=== PATIENT | male | born 1980 | race Caucasian/White ===

== ENCOUNTER 2020-10-09 14:39 | Emergency (ER) | payer OTHER ==
[2020-10-09 15:29] LABS: Absolute Neutrophil Ct (ANC) 3.52 (1.4-6.9); BASOPHIL % 0.9 % (0.0-0.4); Basophil (Absolute #) 0.07 (0-0.4); Eosinophil % 3.9 % (0.00-5.0); Hematocrit 50.2 % (42-50); Hemoglobin 16.9 gm/dl (12.5-18.0); Lymphocyte (Absolute #) 3.16 (1.0-4.6); Lymphocytes % 40.9 % (24.0-44.0); Mean Cell Volume 90.1 fl (78-100); Mean Corpuscular Hemoglobin 30.3 pg (26-32); Mean Corpuscular Hgb Concent. 33.7 g/dl (32-36); Mean Platelet Volume 10.6 fl (7.5-11.0); Monocyte (Absolute #) 0.68 (0.0-1.3); Monocytes % 8.8 % (0.0-12.0); Neutrophil % 45.5 % (36.0-66.0); Platelet Count 348 K/mm3 (150-450); Red Blood Count 5.57 M/mm3 (4.1-5.6); Red Cell Distribution Width 13.3 % (11.5-14.0); White Blood Count 7.7 K/mm3 (4.0-10.5)
[2020-10-09 15:30] LABS: ALBUMIN 4.8 g/dL (3.5-5.0); ALKALINE PHOSPHATASE 56 U/L (38-126); ANION GAP 13.4 MEQ/L (5-15); BLOOD UREA NITROGEN 14 mg/dL (9-20); CHLORIDE 99 mmol/L (98-107); Calcium 9.7 mg/dL (8.4-10.2); Carbon Dioxide 28 mmol/L (22-30); Creatinine 1 0.94 mg/dL (0.66-1.25); EST GLOMERULAR FILTRATION RATE > 60.0 ML/MIN; Glucose 115 mg/dL (74-106); Potassium 3.6 mmol/L (3.5-5.1); SGOT/AST 32 U/L (17-59); SGPT/ALT 36 U/L (0-50); SODIUM 137 mmol/L (137-145); Total Protein 8.2 g/dL (6.3-8.2)
[2020-10-09] MEDS ORDERED: MORPHINE SULFATE 4 MG INJ IV ONE (15:33)
[2020-10-09] MEDS ORDERED: Zofran 4 MG/2 ML VIAL IV ONE (15:33)
[2020-10-09] MEDS ORDERED: Pepcid 20 MG VIAL IV ONE ×2 (15:33→15:46)
[2020-10-09] MEDS ORDERED: GI COCKTAIL 45 ML (Maalox/Lidocaine) PO ONE (15:33)
[2020-10-09] MEDS ORDERED: Zofran 4 MG/2 ML VIAL ONE (15:45)
[2020-10-09] MEDS ORDERED: MORPHINE SULFATE 4 MG INJ ONE (15:46)
[2020-10-09] MEDS ORDERED: MAALOX ES 30 ML UNIT DOSE ONE (15:47)
[2020-10-09] MEDS ORDERED: XYLOCAINE HCl Viscous ONE (15:47)
--- NOTE | 2020-10-09 15:59 | ERPHSYRPT ---
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 pt took 325 asa before coming to ED. reports pmhx HTN only. describes sharp pain in L upper chest that radiates down L arm and is 8/10. pain began at rest and was alleviated upon arriving to ED. during assesment pt states pain is beginning to return. skin PWD. denies NV and not diaphoretic Physician History: 40 years old male with history of hypertension, GERD presented in the ER with i ntermittent chest pain for almost 1 week patient described as a dull aching sharp pain in the left chest with radiation to the left arm, last for few minutes to half an hour and improves on its own. Earlier pain started almost half an hour ago and improved on presentation in the ER and now seems like it is coming back again. Denies any palpitations or shortness of breath associated with it. Unable to relate any significant aggravating or relieving factors. Denies any recent fever chills or cough. Notes having similar chest pain almost a year ago and had a stress test done at [facility] which was negative Timing/Duration: week(s), intermittent, worse Activities at Onset: rest Quality: burning, sharpness Location: substernal, shoulder Chest Pain Radiation: arm, back Severity of Pain-Max: moderate Severity of Pain-Current: moderate Modifying Factors: Improves With: nothing Associated Symptoms: heartburn, No palpitations Prior Chest Pain/Cardiac Workup: no prior cardiac workup Nitro Today/Relief: no nitro taken today Aspirin Treatment Today: provided at home Allergies/Adverse Reactions: No Known Drug Allergies Allergy (Unverified 10/09/20 14:51) Home Medications: Lisinopril/Hydrochlorothiazide [Lisinopril-Hctz 10-12.5 mg Tab] 1 tab PO DAILY 10/09/20 [History] Hx Tetanus, Diphtheria Vaccination/Date Given: Yes Hx Influenza Vaccination/Date Given: No Hx Pneumococcal Vaccination/Date Given: No Travel Risk - International Travel Have you traveled outside of the country in past 3 weeks: No - Coronavirus Screening Are you exhibiting any of the following symptoms?: No Close contact with a COVID-19 positive Pt in past 14-21 Days: No - Review of Systems Constitutional: No Symptoms Eyes: No Symptoms Ears, Nose, & Throat: No Symptoms Respiratory: No Symptoms Cardiac: Chest Pain Abdominal/Gastrointestinal: No Symptoms Genitourinary Symptoms: No Symptoms Musculoskeletal: No Symptoms Skin: No Symptoms Neurological: No Symptoms Psychological: No Symptoms Endocrine: No Symptoms Hematologic/Lymphatic: No Symptoms Immunological/Allergic: No Symptoms - Past Medical History Pertinent Past Medical History: Yes Cardiac History: Hypertension - Past Surgical History Past Surgical History: Yes Musculoskeletal: Orthopedic Surgery Other Surgical History: R femur - metal in place - Social History Smoking Status: Current every day smoker How long have you smoked: years Exposure to second hand smoke: No Drug Use: none Patient Lives Alone: No - Nursing Vital Signs Nursing Vital Signs: Initial Vital Signs Temperature 97.9 F 10/09/20 14:52 Pulse Rate 75 10/09/20 14:52 Respiratory Rate 24 10/09/20 14:52 Blood Pressure 183/107 10/09/20 14:52 O2 Sat by Pulse Oximetry 100 10/09/20 14:52 Pain Scale Pain Intensity 3 - Physical Exam General Appearance: no apparent distress, alert Eye Exam: PERRL/EOMI, eyes nml inspection Ears, Nose, Throat Exam: normal ENT inspection, pharynx normal Neck Exam: normal inspection, non-tender, supple, full range of motion Respiratory Exam: normal breath sounds, lungs clear, No chest tenderness Cardiovascular Exam: regular rate/rhythm, normal heart sounds Gastrointestinal/Abdomen Exam: soft, normal bowel sounds, No tenderness Back Exam: normal inspection, normal range of motion Extremity Exam: normal inspection, normal range of motion Skin Exam: normal color, warm SpO2 Interpretation: normal SpO2: 100 O2 Delivery: Room Air - Course EKG Interpreted by Me: RATE, NORMAL AXIS, NORMAL INTERVALS, NORMAL QRS (T wave inversion in lead II/III/aVF), Other (Second EKG. Time. 1915 Rate80. [place] normal. Normal intervals. ST elevation in inferior leads.) Ordered Tests: Active Orders 24 hr Category Date Time Status CHEST 1 VIEW (PORTABLE) Stat Exams 10/09/20 15:03 Completed CBC W DIFF Stat Lab 10/09/20 15:02 Completed CMP Stat Lab 10/09/20 15:02 Completed D-DIMER QUANTITATIVE Stat Lab 10/09/20 15:02 Completed TROPONIN Q3H Lab 10/09/20 15:02 Completed TROPONIN Q3H Lab 10/09/20 18:15 Completed TROPONIN Q3H Lab 10/09/20 21:15 Ordered EKG STAT RT 10/09/20 15:02 Active Medication Summary Generic Name Dose Route Start Last Admin Trade Name Bess PRN Reason Stop Dose Admin Aspirin 324 mg 10/10/20 10:00 10/09/20 16:06 Ecotrin 81 Mg PO 11/09/20 09:59 Not Given DAILY HARLEEN Discontinued Medications Generic Name Dose Route Start Last Admin Trade Name Bess PRN Reason Stop Dose Admin Al Hydrox/Mg Hydrox/Simethicone Confirm 10/09/20 15:47 Maalox Es 30 Ml Unit Dose Administered 10/09/20 15:48 Dose 30 ml .ROUTE .STK-MED ONE Famotidine 20 mg 10/09/20 15:33 10/09/20 15:53 Pepcid 20 Mg Vial IV 10/09/20 15:34 20 mg STAT ONE Administration Famotidine Confirm 10/09/20 15:46 Pepcid 20 Mg Vial Administered 10/09/20 15:47 Dose 20 mg IV .STK-MED ONE Heparin Sodium (Beef Lung) Confirm 10/09/20 19:26 Heparin 5000 Units/0.5 Ml (High Risk Med) Administered 10/09/20 19:27 Dose 5,000 unit .ROUTE .STK-MED ONE Sodium Chloride Confirm 10/09/20 19:22 Sodium Chloride 0.9% 1000 Ml Administered 10/09/20 19:23 Dose 1,000 mls @ ud .ROUTE .STK-MED ONE Lidocaine HCl Confirm 10/09/20 15:47 Xylocaine Hcl Viscous * Administered 10/09/20 15:48 Dose 15 ml .ROUTE .STK-MED ONE Magnesium Hydroxide 45 ml 10/09/20 15:33 10/09/20 15:56 Gi Cocktail 45 Ml (Maalox/Lidocaine) PO 10/09/20 15:34 45 ml STAT ONE Administration Morphine Sulfate 4 mg 10/09/20 15:33 10/09/20 15:52 Morphine Sulfate 4 Mg Inj IV 10/09/20 15:34 4 mg STAT ONE Administration Morphine Sulfate Confirm 10/09/20 15:46 Morphine Sulfate 4 Mg Inj Administered 10/09/20 15:47 Dose 4 mg .ROUTE .STK-MED ONE Nitroglycerin Confirm 10/09/20 19:14 Nitro-Bid 2% Ud Packets Administered 10/09/20 19:15 Dose 1 gm .ROUTE .STK-MED ONE Nitroglycerin 1 gm 10/09/20 19:33 10/09/20 19:37 Nitro-Bid 2% Ud Packets TOP 10/09/20 19:34 1 gm STAT ONE Administration Ondansetron HCl 4 mg 10/09/20 15:33 10/09/20 15:49 Zofran 4 Mg/2 Ml Vial IV 10/09/20 15:34 4 mg STAT ONE Administration Ondansetron HCl Confirm 10/09/20 15:45 Zofran 4 Mg/2 Ml Vial Administered 10/09/20 15:46 Dose 4 mg .ROUTE .STK-MED ONE Lab/Rad Data: Laboratory Result Diagrams 10/09/20 15:02 10/09/20 15:02 Laboratory Results 10/09/20 10/09/20 10/09/20 Range/Units 18:15 15:02 15:02 WBC (4.0-10.5) K/mm3 RBC (4.1-5.6) M/mm3 Hgb (12.5-18.0) gm/dl Hct (42-50) % MCV (78-100) fl MCH (26-32) pg MCHC (32-36) g/dl RDW (11.5-14.0) % Plt Count (150-450) K/mm3 MPV (7.5-11.0) fl Gran % (36.0-66.0) % Eos # (Auto) (0-0.5) Absolute Lymphs (auto) (1.0-4.6) Absolute Monos (auto) (0.0-1.3) Lymphocytes % (24.0-44.0) % Monocytes % (0.0-12.0) % Eosinophils % (0.00-5.0) % Basophils % (0.0-0.4) % Absolute Granulocytes (1.4-6.9) Basophils # (0-0.4) D-Dimer < 215 L (215-500) ng/mL Sodium (137-145) mmol/L Potassium (3.5-5.1) mmol/L Chloride (98-107) mmol/L Carbon Dioxide (22-30) mmol/L Anion Gap (5-15) MEQ/L BUN (9-20) mg/dL Creatinine (0.66-1.25) mg/dL Estimated GFR ML/MIN Glucose (74-106) mg/dL Calcium (8.4-10.2) mg/dL Total Bilirubin (0.2-1.3) mg/dL AST (17-59) U/L ALT (0-50) U/L Alkaline Phosphatase (38-126) U/L Troponin I 0.432 H* < 0.012 (0.000-0.034) ng/mL Serum Total Protein (6.3-8.2) g/dL Albumin (3.5-5.0) g/dL 10/09/20 10/09/20 Range/Units 15:02 15:02 WBC 7.7 (4.0-10.5) K/mm3 RBC 5.57 (4.1-5.6) M/mm3 Hgb 16.9 (12.5-18.0) gm/dl Hct 50.2 H (42-50) % MCV 90.1 (78-100) fl MCH 30.3 (26-32) pg MCHC 33.7 (32-36) g/dl RDW 13.3 (11.5-14.0) % Plt Count 348 (150-450) K/mm3 MPV 10.6 (7.5-11.0) fl Gran % 45.5 (36.0-66.0) % Eos # (Auto) 0.30 (0-0.5) Absolute Lymphs (auto) 3.16 (1.0-4.6) Absolute Monos (auto) 0.68 (0.0-1.3) Lymphocytes % 40.9 (24.0-44.0) % Monocytes % 8.8 (0.0-12.0) % Eosinophils % 3.9 (0.00-5.0) % Basophils % 0.9 (0.0-0.4) % Absolute Granulocytes 3.52 (1.4-6.9) Basophils # 0.07 (0-0.4) D-Dimer (215-500) ng/mL Sodium 137 (137-145) mmol/L Potassium 3.6 (3.5-5.1) mmol/L Chloride 99 (98-107) mmol/L Carbon Dioxide 28 (22-30) mmol/L Anion Gap 13.4 (5-15) MEQ/L BUN 14 (9-20) mg/dL Creatinine 0.94 (0.66-1.25) mg/dL Estimated GFR > 60.0 ML/MIN Glucose 115 H (74-106) mg/dL Calcium 9.7 (8.4-10.2) mg/dL Total Bilirubin 0.50 (0.2-1.3) mg/dL AST 32 (17-59) U/L ALT 36 (0-50) U/L Alkaline Phosphatase 56 (38-126) U/L Troponin I (0.000-0.034) ng/mL Serum Total Protein 8.2 (6.3-8.2) g/dL Albumin 4.8 (3.5-5.0) g/dL - Progress Progress: re-examined Air Movement: good Progress Note: 10/09/20 19:34 Year years old is evaluated in the ER for intermittent chest pain for almost 1 week. Initial EKG showed sinus rhythm with T wave inversion in inferior leads but no ST elevations. He is given morphine and GI cocktail for symptomatic relief. Patient has full dose aspirin prior to arrival from home. On reevaluation his pain is better. Not in any distress. Initial troponins are negative. Negative D-dimers. Chest x-ray did not show any acute cardiopulmonary findings. Unremarkable work-up otherwise. Second EKG showed finding concerning for ST elevation inferior leads and has elevated troponin of 0.43. I believe patient is evolving ST elevation [place] although his pain is better. I have discussed with Dr. [facility] and patient is accepted for transfer. He is given heparin bolus here. Plan discussed with patient who understand and agrees with it. Blood Culture(s) Obtained: No Antibiotics given: No Discussed with : Other ([facility]) Will see patient in: ED Counseled pt/family regarding: lab results, diagnosis, rad results - Departure Departure Disposition: Transfer Clinical Impression: STEMI (ST elevation myocardial infarction) Qualifiers: Involved coronary artery: unspecified coronary artery Qualified Code(s): I21.3 - ST elevation (STEMI) myocardial infarction of unspecified site Condition: Stable Critical Care Time: Yes Critical Care Time(excluding separately billable procedures): Critical 30-74 mins Referrals: SOHAIL POOLE, NURSERY HELPER [ALLIED HEALTH PROFESSION STAFF] -
--- NOTE | 2020-10-09 16:06 | XRAY ---
Indication: Chest pain. Comparison: None Portable chest demonstrates normal heart, lungs, and bony thorax with incidental right perihilar calcified nodes.
[2020-10-09] MEDS ORDERED: NITRO-BID 2% UD PACKETS ONE (19:14)
[2020-10-09] MEDS ORDERED: Sodium Chloride 0.9% 1000 ML 1,000 ML ONE (19:22)
[2020-10-09] MEDS ORDERED: Heparin 5000 UNITS/0.5 ML (HIGH RISK MED) ONE (19:26)
[2020-10-09 19:29] VITALS: BP 157/99; PULSE 80; O2SAT 100
[2020-10-09] MEDS ORDERED: NITRO-BID 2% UD PACKETS TOP ONE (19:33)
[2020-10-10] MEDS ORDERED: ECOTRIN 81 MG PO SCH (10:00)
== END 2020-10-09 19:37 | disposition short-term general hospital (02) ==
LOC: ED 14:39
DX: I21.3 ST elevation (STEMI) myocardial infarction of unspecified site (principal)
CPT/HCPCS: 36415; 71045; 80053; 84484; 85025; 85379; 93005; 96374; 96375; 99285; 99291; J1644; J2270; J2405; A9270-GY

== ENCOUNTER 2022-02-28 23:21 | Emergency (ER) | payer OTHER ==
[2022-02-28 23:41] VITALS: O2SAT 96
[2022-02-28] MEDS ORDERED: KEFLEX 500 MG PO ONE (23:59)
[2022-03-01] MEDS ORDERED: KEFLEX 500 MG ONE (00:02)
--- NOTE | 2022-03-01 00:07 | ERPHSYRPT ---
- History of Present Illness Time Seen by Provider: 02/28/22 23:40 Source: patient Exam Limitations: no limitations Patient Subjective Stated Complaint: Pt states " I cut my finger on my copper tube winder hand." Triage Nursing Assessment: Pt alert and oriented x3, pt presents with laceration on tip of index finger on L hand d/t cutting it on a tube winder hand around 1500, bleeding is controlled at this time, pt had index finger bandaged up upon triage, pt placed bacitracin and peroxide on laceration prior to bandage. pt states "it is a little numb on the tip of my finger." Physician History: Patient is a 41-year-old male presents to our ED for evaluation of a laceration to the distal tip of his left ring finger. Patient states Cutting copper tubing when the cutter slipped and lacerated the tip of his finger. Injury occurred approximately 3 PM today, 9 hours prior to arrival. Patient treated the wound with bacitracin and peroxide. Patient states his made him come to the ER for evaluation. Patient declineda Finger x-ray. Patient states he is sure the injury just soft tissue. Tetanus up-to-date. Pain well controlled this time. Patient declined pain medication. Patient voices no other complaints or concerns at this time. Patient denies foreign body sensation Timing/Duration: today Severity: mild Modifying Factors: Improves With: nothing Associated Symptoms: denies symptoms Allergies/Adverse Reactions: No Known Drug Allergies Allergy (Verified 02/28/22 23:31) Home Medications: Lisinopril/Hydrochlorothiazide [Lisinopril-Hctz 10-12.5 mg Tab] 1 tab PO DAILY 10/09/20 [History] Aspirin [Adult Aspirin Regimen] 81 mg PO DAILY 02/28/22 [History] Atorvastatin Calcium 80 mg PO DAILY 02/28/22 [History] Metoprolol Tartrate 25 mg [Lopressor 25MG Tab] 25 mg PO DAILY 02/28/22 [History] Ticagrelor [Brilinta] 90 mg PO DAILY 02/28/22 [History] Hx Tetanus, Diphtheria Vaccination/Date Given: Yes Hx Influenza Vaccination/Date Given: No Hx Pneumococcal Vaccination/Date Given: No Immunizations Up to Date: Yes Travel Risk - International Travel Have you traveled outside of the country in past 3 weeks: No - Coronavirus Screening Are you exhibiting any of the following symptoms?: No Close contact with a COVID-19 positive Pt in past 14-21 Days: No - Vaccine Status Have you recieved a Covid-19 vaccination: Yes Parish Visitor: Unknown - Vaccination Dates Dates if Unknown: 2020 - Review of Systems Constitutional: No Symptoms, No Fever, No Chills Eyes: No Symptoms Ears, Nose, & Throat: No Symptoms Respiratory: No Symptoms, No Cough, No Dyspnea Cardiac: No Symptoms, No Chest Pain, No Edema, No Syncope Abdominal/Gastrointestinal: No Symptoms, No Abdominal Pain, No Nausea, No Vomiting, No Diarrhea Genitourinary Symptoms: No Symptoms, No Dysuria Musculoskeletal: No Symptoms, No Back Pain, No Neck Pain Skin: No Symptoms, No Rash Neurological: No Symptoms, No Dizziness, No Focal Weakness, No Sensory Changes Psychological: No Symptoms Endocrine: No Symptoms Hematologic/Lymphatic: No Symptoms Immunological/Allergic: No Symptoms All Other Systems: Reviewed and Negative - Past Medical History Pertinent Past Medical History: Yes Neurological History: No Pertinent History ENT History: No Pertinent History Cardiac History: Hypertension, Myocardial Infarction (MS) Respiratory History: No Pertinent History Endocrine Medical History: No Pertinent History Musculoskeletal History: No Pertinent History GI Medical History: Hernia History: No Pertinent History Psycho-Social History: No Pertinent History Male Reproductive Disorders: No Pertinent History - Past Surgical History Past Surgical History: Yes Cardiac: Cardiac Stent Musculoskeletal: Orthopedic Surgery Other Surgical History: R femur - metal in place - Social History Smoking Status: Current every day smoker How long have you smoked: years Exposure to second hand smoke: No Drug Use: none Patient Lives Alone: No - Nursing Vital Signs Nursing Vital Signs: Initial Vital Signs Temperature 98.5 F 02/28/22 23:32 Pulse Rate 111 H 02/28/22 23:32 Respiratory Rate 16 02/28/22 23:32 Blood Pressure 155/105 02/28/22 23:32 O2 Sat by Pulse Oximetry 96 02/28/22 23:32 Pain Scale Pain Intensity 1 - Physical Exam General Appearance: no apparent distress, alert Eye Exam: PERRL/EOMI, eyes nml inspection Ears, Nose, Throat Exam: normal ENT inspection, TMs normal, pharynx normal, moist mucous membranes Neck Exam: normal inspection, non-tender, supple, full range of motion Respiratory Exam: normal breath sounds, lungs clear, airway intact, No r espiratory distress Cardiovascular Exam: regular rate/rhythm, normal heart sounds, normal peripheral pulses Gastrointestinal/Abdomen Exam: soft, normal bowel sounds, No tenderness, No mass Back Exam: normal inspection, normal range of motion, No CVA tenderness, No vertebral tenderness Extremity Exam: normal inspection, normal range of motion, pelvis stable, other (Is about a half centimeter laceration to the distal tip of the left ring finger. No subungual hematoma. No open or draining lesions. Tendon function intact in both flexion and extension), No swelling (Minimal swelling. Radial pulse palpable.) Neurologic Exam: alert, oriented x 3, cooperative, normal mood/affect, nml cerebellar function, nml station & gait, sensation nml, No motor deficits Skin Exam: normal color, warm, dry, other (No foreign body observed at the injury site), No rash Lymphatic Exam: No adenopathy SpO2 Interpretation: normal SpO2: 96 O2 Delivery: Room Air Procedures - Laceration/Wound Repair Finger Time of Procedure: 00:11 Wound Location: Left (Distal tip left ring finger.) Wound Length (cm): 0.5 Wound's Depth, Shape: superficial Wound Explored: contaminated (Wound appears somewhat contaminated. Wound irrigated by nursing services.) Irrigated: Yes Hibiclens Prep: Yes Wound Debrided: No debridement indicated Wound Repaired With: Dermabond Sterile Dressing Applied?: Yes Sling Applied?: No - Course Nursing assessment & vital signs reviewed: Yes Ordered Tests: Medication Summary Discontinued Medications Generic Name Dose Route Start Last Admin Trade Name Freq PRN Reason Stop Dose Admin Cephalexin HCl 500 mg 02/28/22 23:59 03/01/22 00:05 Cephalexin Mh500 Mg Capsule PO 03/01/22 00:00 500 mg STAT ONE Administration Cephalexin HCl Confirm 03/01/22 00:02 Cephalexin Mh500 Mg Capsule Administered 03/01/22 00:03 Dose 500 mg .ROUTE .STK-MED ONE - Progress Progress: improved Progress Note: Patient reassessed. Patient declined pain medication. The wound site was slightly contaminated. Antibiotics administered. Patient denies foreign body sensation. No foreign bodies in the observed during exam. Extremity neurovascular intact distally. Tetanus up-to-date. Patient otherwise feels well. He voices no other complaints or concerns at this time. Will discharge home. Portions of this note were created with voice recognition technology. There may be grammatical, spelling, punctuation or sound alike errors 03/01/22 00:14 Counseled pt/family regarding: diagnosis, need for follow-up - Departure Departure Disposition: Home Clinical Impression: Finger laceration Condition: Stable Critical Care Time: No Referrals: ABEBE LEY MD [Primary Care Provider] - Follow up/PCP as directed Additional Instructions: Discharge/Care Plan EDINSON LEROY was seen on 03/01/22 in the Emergency Room. The patient was counseled regarding Diagnosis,Lab results, Imaging studies, need for follow up and when to return to the Emergency Room. Prescriptions given: Discharge Note I have spoken with the patient and/or caregivers. I have explained the patient's condition, diagnosis and treatment plan based on the information available to me at this time. I have answered the patient's and/or caregiver's questions and addressed any concerns. The patient and/or caregivers have as good understanding of the patient's diagnosis, condition and treatment plan as can be expected at this point. The vital signs have been stable. The patient's condition is stable and appropriate for discharge from the emergency department. The patient will pursue further outpatient evaluation with the primary care physician or other designated or consulting physician as outlined in the discharge instructions. The patient and/or caregivers are agreeable to this plan of care and follow-up instructions have been explained in detail. The patient and/or caregivers have received these instruction. The patient/and or caregivers are aware that any significant change in condition or worsening of symptoms should prompt an immediate return to this or the closest emergency department or call 911. Prescriptions: Cephalexin Mh 500 mg [Keflex 500 mg] 500 mg PO TID #21 cap
[2022-03-01 00:36] VITALS: BP 144/103; PULSE 99
== END 2022-03-01 00:36 | disposition home or self-care (01) ==
LOC: ED 23:21
DX: S61.215A Laceration without foreign body of left ring finger without damage to nail, initial encounter (principal); W45.8XXA Other foreign body or object entering through skin, initial encounter; W27.8XXA Contact with other nonpowered hand tool, initial encounter; I10 Essential (primary) hypertension; Z72.0 Tobacco use
CPT/HCPCS: 12001; 99283; A9270-GY

== ENCOUNTER 2023-07-28 17:59 | Emergency (ER) | payer OTHER ==
[2023-07-28 18:14] VITALS: TEMP 97.6
--- NOTE | 2023-07-28 18:28 | ERPHSYRPT ---
- History of Present Illness Time Seen by Provider: 07/28/23 18:25 Source: patient Exam Limitations: no limitations Patient Subjective Stated Complaint: Back pain Triage Nursing Assessment: Patient ambulated back to ED and transferred self to bed. Patient A+O X3. Patient's skin pink, warm and dry. Patient states he picked up a commercial grill approx 1000 pounds with the help of 4 others. Patient states he felt a pop in the lower mid back pain. Patient states the pain is constant sharp pain 6/10. Patient stated the pain is worse when moving or walking. Physician History: Patient states he picked up a commercial grill approx 1000 pounds with the help of 4 others. Patient states he felt a pop in the lower mid back pain. Patient states the pain is constant sharp pain 6/10. Patient stated the pain is worse when moving or walking. Timing/Duration: today Method of Injury: lifting Quality: sharp, aching Back Pain Location: lumbar spine Severity of Pain-Max: moderate Severity of Pain-Current: moderate Modifying Factors: Improves With: nothing Associated Symptoms: numbness in legs/feet, weakness, lower back pain, muscle spasms Previous symptoms: same symptoms as today Allergies/Adverse Reactions: No Known Drug Allergies Allergy (Verified 07/28/23 18:03) Home Medications: Lisinopril/Hydrochlorothiazide [Lisinopril-Hctz 10-12.5 mg Tab] 1 tab PO DAILY 10/09/20 [History] Aspirin [Adult Aspirin Regimen] 81 mg PO DAILY 02/28/22 [History] Atorvastatin Calcium 80 mg PO DAILY 02/28/22 [History] Metoprolol Tartrate 25 mg [Lopressor 25MG Tab] 50 mg PO BID 02/28/22 [History] Lisinopril 20 mg [Zestril 20 MG] 1 tab PO DAILY 07/28/23 [History] Hx Tetanus, Diphtheria Vaccination/Date Given: Yes Hx Influenza Vaccination/Date Given: No Hx Pneumococcal Vaccination/Date Given: No Immunizations Up to Date: Yes Travel Risk - International Travel Have you traveled outside of the country in past 3 weeks: No - Coronavirus Screening Are you exhibiting any of the following symptoms?: No Close contact with a COVID-19 positive Pt in past 14-21 Days: No - Vaccine Status Have you recieved a Covid-19 vaccination: Yes 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 - Vaccination Dates Dates if Unknown: 2020 - Review of Systems Constitutional: No Fever, No Chills Eyes: No Symptoms Ears, Nose, & Throat: No Symptoms Respiratory: No Cough, No Dyspnea Cardiac: No Chest Pain, No Edema, No Syncope Abdominal/Gastrointestinal: No Abdominal Pain, No Nausea, No Vomiting, No Diarrhea Genitourinary Symptoms: No Dysuria Musculoskeletal: Back Pain, No Neck Pain Skin: No Rash Neurological: No Dizziness, No Focal Weakness, No Sensory Changes Psychological: No Symptoms Endocrine: No Symptoms All Other Systems: Reviewed and Negative - Past Medical History Pertinent Past Medical History: Yes Neurological History: No Pertinent History ENT History: No Pertinent History Cardiac History: Hypertension, Myocardial Infarction ([place]) Respiratory History: No Pertinent History Endocrine Medical History: No Pertinent History Musculoskeletal History: No Pertinent History GI Medical History: Hernia History: No Pertinent History Psycho-Social History: No Pertinent History Male Reproductive Disorders: No Pertinent History - Past Surgical History Past Surgical History: Yes Cardiac: Cardiac Catheterization, Cardiac Stent Musculoskeletal: Orthopedic Surgery Other Surgical History: R femur - metal in place. 5 stents - Social History Smoking Status: Current every day smoker How long have you smoked: years Exposure to second hand smoke: No Drug Use: none Patient Lives Alone: No - Nursing Vital Signs Nursing Vital Signs: Initial Vital Signs Temperature 97.6 F 07/28/23 18:06 Pulse Rate 107 H 07/28/23 18:06 Respiratory Rate 18 07/28/23 18:06 Blood Pressure 164/112 07/28/23 18:06 O2 Sat by Pulse Oximetry 100 07/28/23 18:06 Pain Scale Pain Intensity 6 - Physical Exam General Appearance: no apparent distress, alert Eye Exam: PERRL/EOMI, eyes nml inspection Neck Exam: normal inspection, non-tender, supple, full range of motion, No meningismus, No midline tenderness Respiratory Exam: normal breath sounds, lungs clear, No respiratory distress Cardiovascular Exam: regular rate/rhythm, normal heart sounds Gastrointestinal Exam: soft, No tenderness, No mass Back Exam: vertebral tenderness, decreased range of motion, muscle spasm, point tenderness Extremity Exam: normal inspection, normal range of motion, No calf tenderness, No pedal edema Neurologic Exam: alert, oriented x 3, cooperative, channeler runner II-XII nml as tested, normal mood/affect, nml station & gait, sensation nml, No motor deficits Skin Exam: normal color, warm, dry, No rash SpO2: 100 - Course Nursing assessment & vital signs reviewed: Yes - CT Exams Lumbar Spine CT Interpretation: Tele-radiologist Report, No Fracture Ordered Tests: Active Orders 24 hr Category Date Time Status LUMBAR SPINE W/O [CT] Stat Exams 07/28/23 18:09 Completed Medication Summary Discontinued Medications Generic Name Dose Route Start Last Admin Trade Name Bess PRN Reason Stop Dose Admin Ketorolac Tromethamine 60 mg 07/28/23 18:36 07/28/23 18:44 Ketorolac Tromethamine 30 Mg/Ml Inj IM 07/28/23 18:37 60 mg STAT ONE Administration Ketorolac Tromethamine Confirm 07/28/23 18:43 Ketorolac Tromethamine 30 Mg/Ml Inj Administered 07/28/23 18:44 Dose 60 mg .ROUTE .STK-MED ONE Orphenadrine Citrate 60 mg 07/28/23 18:36 07/28/23 18:44 Orphenadrine Citrate 60 Mg/2 Ml Vial IM 07/28/23 18:37 60 mg STAT ONE Administration Orphenadrine Citrate Confirm 07/28/23 18:43 Orphenadrine Citrate 60 Mg/2 Ml Vial Administered 07/28/23 18:44 Dose 60 mg .ROUTE .STK-MED ONE Lab/Rad Data: CT/LUMBAR SPINE W/O CLINICAL HISTORY:acute low back pain COMPARISON:None. TECHNIQUE:Continuous multislice nonenhanced CT scan of the lumbar spine in the axial plane with multiplanar reconstruction. FINDINGS: A break is seen in the pars interarticularis of the L5 vertebra on both sides representing spondylolysis. Normal lumbar lordosis was seen. Normal bone mineralization. Tiny osteophytes along the anterior endplate margins of the T11, L3, L4, and L5 vertebrae. No suspicious focal bony lesion. Preserved spinal canal with no retropulsed fragments. There is a small focal sclerosis in the left sacral bone, could represent a bone island. L1-L2: There is no disc bulge. No significant osteophytes or degenerative changes. L2-L3: There is no disc bulge. No significant osteophytes or degenerative changes. L3-L4: There is no disc bulge. No significant osteophytes or degenerative changes. L4-L5: Mild disc bulges noted however no definite spinal canal narrowing was seen. L5-S1: Diffuse disc herniation measuring 5.4 mm is noted at L5-S1 causing narrowing of the central canal and bilateral neural foramen. There are no facetal arthritic changes. Mild atherosclerotic calcification of the abdominal aorta is seen. Visualized sacroiliac joints appear normal. No abnormal paraspinal soft tissue masses were seen. IMPRESSION: 1. Break is seen in the pars interarticularis of the L5 vertebra on both sides representing spondylolysis. 2. L5-S1: 5.4 mm diffuse disc herniation causing narrowing of the central canal and bilateral neural foramen. 3. L4-L5: Mild disc bulges noted however no definite spinal canal narrowing seen. 4. Further evaluation with MRI Lumbar spine for proper disc evaluation is recommended. 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 - Progress Progress: improved, pain not gone completely Counseled pt/family regarding: diagnosis, need for follow-up, rad results Medical Desision Making - Diagnostic Testing Diagnostic test were ordered, analyzed, and reviewed by me: Yes Radiological Interpretation: Teleradiologist Report - Risk of complications Minimal Risk: Minimal risk of morbidity - Departure Departure Disposition: Home Clinical Impression: Acute low back pain Qualifiers: Back pain laterality: bilateral Sciatica presence: without sciatica Qualified Code(s): M54.50 - Low back pain, unspecified Condition: Stable Critical Care Time: No Referrals: ABEBE LEY MD [Primary Care Provider] - Follow up/PCP as directed Instructions: Low Back Pain (DC) Additional Instructions: BACK INJURY 1. May apply moist heat frequently for relief of pain. Take care not to burn the skin. Do not use heat for more than 30 minutes at a time. 2. Try to sleep on a firm bed, flat on your back. 3. If no improvement is noticed in 2-3 days, follow up with your family physician. 4. If you notice any numbness, tingling, weakness, or problems with your bowel or bladder, you should call your family physician or return to the emergency department. Discharge/Care Plan EDINSON LEROY was seen on 07/28/23 in the Emergency Room. The patient was counseled regarding Diagnosis,Lab results, Imaging studies, need for follow up and when to return to the Emergency Room. Prescriptions given: Discharge Note I have spoken with the patient and/or caregivers. I have explained the patient's condition, diagnosis and treatment plan based on the information available to me at this time. I have answered the patient's and/or caregiver's questions and addressed any concerns. The patient and/or caregivers have as good understanding of the patient's diagnosis, condition and treatment plan as can be expected at this point. The vital signs have been stable. The patient's condition is stable and appropriate for discharge from the emergency department. The patient will pursue further outpatient evaluation with the primary care physician or other designated or consulting physician as outlined in the disc harge instructions. The patient and/or caregivers are agreeable to this plan of care and follow-up instructions have been explained in detail. The patient and/or caregivers have received these instruction. The patient/and or caregivers are aware that any significant change in condition or worsening of symptoms should prompt an immediate return to this or the closest emergency department or call 911. EDINSON LEROY was seen on 07/28/23 n the Emergency Room. At that time you were treated for an emergent condition, during your visit Laboratory, Radiology and/or other procedures may have been ordered. It is very important that you follow-up with your Primary Care Physician ABEBE LEY MD within the next 24-48 hours to review your Emergency Room visit and the final results of testing that was ordered. Some test results such as Urine Cultures, Blood Cultures, and other cultures if ordered will not be finalized for 24-48 hours. If you do not have a Primary Care Provider please call the medical records department at [phone] ext [phone] to obtain a copy of your results or you may sign into our patient portal to obtain these results by visiting us @ [email or web address] and completing the following steps: 1. Click on the Patient Portal link 2. Click the Patient Self Enrollment Link to complete the enrollment form and entering your 3. Once the enrollment form is completed you will receive an email with a temporary ID and password at the email address you provided. 4. Next choose a user name and password. Your user name must be at least 4 characters long and your password must be at least 4 characters long. 5. Choose a security question from the list and provide your answer to the question. If you already have signed into the Health Portal you may access your Health Care Information 14/05 by the following steps: 1. Login to our website @ [email or web address] 2. Enter your original user name and password. FAQS The [facility] Health Portal is an online tool that contains your Lab Results, Radiology Reports, Visit History, Discharge Instructions and Health Summary Lab and Radiology Results will not be available for 72 hours on the portal. The Portal is a secure site, passwords are encryted and URLs are re-written so they cannot be copied and pasted. You and authorized family members are the only ones who can access your Portal. Also there is a timeout feature that protects your information if you leave the Portal page open. If you have technical difficulty please use the Contact Us link on the page this will allow you to submit any questions you have regarding the Portal or you may contact the Medical Record Department at [phone] ext [phone].
[2023-07-28] MEDS ORDERED: TORAdol 30 mg Injection IM ONE (18:36)
[2023-07-28] MEDS ORDERED: Norflex 60 MG/2 ML IM ONE (18:36)
[2023-07-28] MEDS ORDERED: TORAdol 30 mg Injection ONE (18:43)
[2023-07-28] MEDS ORDERED: Norflex 60 MG/2 ML ONE (18:43)
--- NOTE | 2023-07-28 19:16 | XRAY ---
CLINICAL HISTORY:acute low back pain COMPARISON:None. TECHNIQUE:Continuous multislice nonenhanced CT scan of the lumbar spine in the axial plane with multiplanar reconstruction. FINDINGS: A break is seen in the pars interarticularis of the L5 vertebra on both sides representing spondylolysis. Normal lumbar lordosis was seen. Normal bone mineralization. Tiny osteophytes along the anterior endplate margins of the T11, L3, L4, and L5 vertebrae. No suspicious focal bony lesion. Preserved spinal canal with no retropulsed fragments. There is a small focal sclerosis in the left sacral bone, could represent a bone island. L1-L2: There is no disc bulge. No significant osteophytes or degenerative changes. L2-L3: There is no disc bulge. No significant osteophytes or degenerative changes. L3-L4: There is no disc bulge. No significant osteophytes or degenerative changes. L4-L5: Mild disc bulges noted however no definite spinal canal narrowing was seen. L5-S1: Diffuse disc herniation measuring 5.4 mm is noted at L5-S1 causing narrowing of the central canal and bilateral neural foramen. There are no facetal arthritic changes. Mild atherosclerotic calcification of the abdominal aorta is seen. Visualized sacroiliac joints appear normal. No abnormal paraspinal soft tissue masses were seen. IMPRESSION: 1. Break is seen in the pars interarticularis of the L5 vertebra on both sides representing spondylolysis. 2. L5-S1: 5.4 mm diffuse disc herniation causing narrowing of the central canal and bilateral neural foramen. 3. L4-L5: Mild disc bulges noted however no definite spinal canal narrowing seen. 4. Further evaluation with MRI Lumbar spine for proper disc evaluation is recommended. ER was called [phone] Ext: [phone], at 06:08 PM MANAGER EDUCATIONAL, and results were communicated with Bebeto Bautista. Electronically Signed by: Bradley Quigley MD. (07/28/2023 18:14:14 MANAGER EDUCATIONAL)
[2023-07-28 19:47] VITALS: BP 161/96; PULSE 90; RESP 16; O2SAT 98
== END 2023-07-28 19:48 | disposition home or self-care (01) ==
LOC: ED 17:59
DX: M54.50 Low back pain, unspecified (principal); I10 Essential (primary) hypertension; Z79.899 Other long term (current) drug therapy; Z72.0 Tobacco use
CPT/HCPCS: 72131; 96372; 99283; J1885; J2360